=== PATIENT | male | born 1985 | race American Indian/Alaskan Native ===

== ENCOUNTER 2019-01-25 15:15 | Emergency (ER) | payer OTHER ==
[~2019-01-25] VITALS: Ht 177.8 cm; Wt 89.8 kg
[~2019-01-25 15:15] MED LIST: IBUPROFEN200 MG PO; NAPROXEN500 MG PO
[2019-01-25] MEDS ORDERED: INVEGA SUS117 MG/0.7 IM (15:28)
[2019-01-25] MEDS ORDERED: ZYPREXA ZYDIS5 MG PO (16:05)
== END 2019-01-25 16:05 | disposition home or self-care (01) ==
LOC: ED 15:15
DX: F23 Brief psychotic disorder (principal); F20.9 Schizophrenia, unspecified; F17.200 Nicotine dependence, unspecified, uncomplicated; Z79.899 Other long term (current) drug therapy
CPT/HCPCS: 99284; 99406

== ENCOUNTER 2019-04-17 14:39 | Emergency (ER) | payer OTHER ==
[~2019-04-17] VITALS: Ht 177.8 cm; Wt 94.3 kg
[~2019-04-17 14:39] MED LIST changes: +INVEGA SUS117 MG/0.7 IM; +ZYPREXA ZYDIS5 MG PO
--- OUTSIDE RECORDS SUMMARY | 2019-04-17 14:42 | XMS ---
PreManage Notification: MELONY GARCIA [employer] A[employer] Events 1 event(s) in the past 18 months Most recent security events: Elopement at [facility] 01/30/2019 13:19 - Other Details: PATIENT FELICITAS, CRUZ KIDD. CRITERIA MET - [facility] - Has Care Guidelines CARE PROVIDERS RIN PATEL Nurse Practitioner 01/31/2019-Current PHONE: [phone] Shadia has no Care Guidelines for this patient. Care History Medical/Surgical 01/31/2019 [facility] \T\middot;\T\nbsp; PATIENT IS A [employer] MEMBER. \T\middot;\T\nbsp; PLEASE REFER PATIENT TO [facility] FOR NON EMERGENT MEDICAL NEEDS. \T\middot;\ T\nbsp; [facility] CAN SEE PATIENTS SAME DAY FOR APTS IF PATIENT CALLS FIRST THING IN THE MORNING. E.D. VISIT COUNT (12 MO.) 3 [facility]. TOTAL 3 NOTE: Visits indicate total known visits. ED/UCC VISIT TRACKING (12 MO.) 04/17/2019 14:40 [facility] TYPE: Emergency COMPLAINT: - MEDICAL CLEARANCE 01/30/2019 13:19 [facility] TYPE: Emergency COMPLAINT: - MEDICAL CLEARANCE DIAGNOSES: - Procedure and treatment not carried out due to patient leaving prior to being seen by health care provider 01/25/2019 [facility]:[address] [facility] [place] [facility] COMPLAINT: - POSS WITHDRAWALS DIAGNOSES: - Schizophrenia, unspecified - Brief psychotic disorder - Other fci (current) drug therapy - Nicotine dependence, unspecified, uncomplicated - Encounter for issue of repeat prescription INPATIENT VISIT TRACKING (12 MO.) No inpatient visits to display in this time frame [email or web address]
[2019-04-18] MEDS ORDERED: HYDROXYZINE HCL25 MG PO (08:49)
== END 2019-04-17 16:29 | disposition home or self-care (01) ==
LOC: ED 14:39
DX: F20.9 Schizophrenia, unspecified (principal); F15.10 Other stimulant abuse, uncomplicated; F17.200 Nicotine dependence, unspecified, uncomplicated; Z79.899 Other long term (current) drug therapy
CPT/HCPCS: 99284

== ENCOUNTER 2019-04-18 08:39 | Emergency (ER) | payer OTHER ==
[~2019-04-18] VITALS: Ht 177.8 cm; Wt 94.3 kg
--- OUTSIDE RECORDS SUMMARY | 2019-04-18 08:42 | XMS ---
PreManage Notification: MELONY GARCIA [employer] Events 1 event(s) in the past 18 months Most recent security events: Elopement at [facility] 01/30/2019 13:19 - Other Details: PATIENT CRUZ POLK. CRITERIA MET - 6 ED Visits in [address] [facility] - Has Care Guidelines - [facility] - 2 Visits in 30 Days CARE PROVIDERS RIN PATEL Nurse Practitioner 01/31/2019-Current PHONE: [phone] Shadia has no Care Guidelines for this patient. Care History Medical/Surgical 01/31/2019 [facility] \T\middot;\T\nbsp; PATIENT IS A [employer] MEMBER. \T\middot;\T\nbsp; [facility] FOR NON EMERGENT MEDICAL NEEDS. \T\middot;\ T\nbsp; [facility] CAN SEE PATIENTS SAME DAY FOR APTS IF PATIENT CALLS FIRST THING IN THE MORNING. E.D. VISIT COUNT (12 MO[address] [facility] ([place]) 4 [facility] [place] TOTAL 6 NOTE: Visits indicate total known visits. ED/UCC VISIT TRACKING (12 MO.) 04/18/2019 08:39 [facility] [place] TYPE: Emergency COMPLAINT: - HALLUCINATIONS, HEARING VOICES 04/17/2019 14:40 [facility] [place] TYPE: Emergency COMPLAINT: - MEDICAL CLEARANCE [facility] COMPLAINT: - MH EVAL [facility] COMPLAINT: - MENTAL HEALTH DIAGNOSES: 1. Auditory hallucinations 2. Nicotine dependence, unspecified, uncomplicated 3. Other psychoactive substance abuse, uncomplicated 01/30/2019 13:19 [facility] TYPE: Emergency COMPLAINT: - MEDICAL CLEARANCE DIAGNOSES: - Procedure and treatment not carried out due to patient leaving prior to being seen by health care provider 01/25/2019 15:16 [facility] [place] TYPE: Emergency COMPLAINT: - POSS WITHDRAWALS DIAGNOSES: - Schizophrenia, unspecified - Brief psychotic disorder - Other assisted (current) drug therapy - Nicotine dependence, unspecified, uncomplicated - Encounter for issue of repeat prescription INPATIENT VISIT TRACKING (12 MO.) No inpatient visits to display in this time frame [email or web address]
[2019-04-18] MEDS ORDERED: HYDROXYZINE HCL25 MG PO (08:49)
== END 2019-04-19 09:16 | disposition short-term general hospital (02) ==
LOC: ED 08:39
DX: F20.9 Schizophrenia, unspecified (principal); F15.10 Other stimulant abuse, uncomplicated; F17.200 Nicotine dependence, unspecified, uncomplicated; Z79.899 Other long term (current) drug therapy
CPT/HCPCS: 80053; 80176; 81001; 85025; 99285; G0480

== ENCOUNTER 2021-09-17 17:01 | Emergency (ER) | payer OTHER ==
[~2021-09-17] VITALS: Ht 177.8 cm; Wt 66.6 kg
[~2021-09-17 17:01] MED LIST changes: +HYDROXYZINE HCL25 MG PO
[2021-09-17] MEDS ORDERED: CEPHALEXIN500 MG PO (18:45)
== END 2021-09-17 19:37 | disposition home or self-care (01) ==
LOC: ED 17:01
DX: L60.0 Ingrowing nail (principal); S90.425A Blister (nonthermal), left lesser toe(s), initial encounter; L08.9 Local infection of the skin and subcutaneous tissue, unspecified; E11.9 Type 2 diabetes mellitus without complications; F17.200 Nicotine dependence, unspecified, uncomplicated
CPT/HCPCS: 81001; 99283